=== PATIENT | female | born 1995 | race Caucasian/White ===

== ENCOUNTER 2018-12-09 12:07 | Emergency (ER) | payer OTHER, SELFPAY ==
[2018-12-09 12:07] VITALS: BP 131/94; PULSE 94; RESP 16; TEMP 36; O2SAT 96; BMI 48.0
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
--- NOTE | 2018-12-09 13:21 | ED.VISSUMM ---
- ER Visit Summary Date of Service: 12/09/18 Chief Complaint: Suicidal History of Present Illness: The patient is a 22 F with suicidal thoughts. She has had a depressed mood and she has been thinking about harming herself. She thought about killing herself in a motor vehicle accident or using her family's gun. She has not attempted to hurt her self. She denies any history of psychiatric illness or hospitalization. She denies any medical complaints. Physical Examination: Afebrile and vital signs unremarkable. Alert and oriented. No acute distress. Depressed mood and flat affect. Heart regular. Lungs clear. Abdomen soft. Skin appears normal. Test Results: CBC, CMP, test, tox, alcohol levels are pending. Emergency Department Course and Treatment: Patient had suicide precautions. I believe she will benefit from inpatient psychiatric care. Medical clearance was performed and unremarkable. Patient will be medically cleared for transfer and admission to a psychiatric facility. Treatment Plan: As above Disposition: Pending placement Impression: 1. Suicidal ideation This note was generated with [employer] dictation software. It may contain incorrect words, spelling, and punctuation that were not noted in review of the chart prior to signing ED Disposition - Plan for ED Patient: Referrals: [facility] Doctor,Out of [Primary Care Provider] -
[2018-12-09 13:26] LABS: Absolute Lymphocyte Count 1.47 X10^3/uL (0.83-4.51); Absolute Neutrophil Count 7.1 X10^3/uL (2.0-7.7); Basophil# 0.04 X10^3/uL; Basophil% 0.4 % (0-1); Eosinophil# 0.09 X10^3/uL; Hematocrit 38.5 % (37-47); Hemoglobin 11.7 g/dL (12.0-15.0); Lymphocyte # 1.47 X10^3/ul (4.0); Mean Corp Hgb Conc 30.4 g/dL (32-36); Mean Corpuscular Hgb 23.7 pg (27.0-32.0); Mean Corpuscular Volume 77.9 fL (81-99); Mean Platelet Vol. 12.4 fl (6.2-12.0); Monocyte# 0.44 X10^3/uL; Monocyte% 4.8 % (0-10); NRBC Flagged by Analyzer 0 % (0-5); Neutrophil # 7.12 X10^3/uL (2.7-7.7); Neutrophil % 77.6 % (47-70); Platelet Count 213 K/mm3 (150-450); RBC Distribution Width CV 15.5 % (11.6-14.6); RBC Distribution Width SD 43.5 fl (35.1-43.9); Red Blood Count 4.94 M/mm3 (4.2-5.4); White Blood Count 9.2 K/mm3 (4.4-11.0)
[2018-12-09 13:36] LABS: Amphetamine Urine VISTA NEGATIVE (<1000 ng/mL); Barbiturate Urine VISTA NEGATIVE (< 200 ng/mL); Benzodiazepine Urine VISTA NEGATIVE (< 200 ng/mL); Cocaine Urine VISTA NEGATIVE (< 300 ng/mL); Ecstacy Urine VISTA NEGATIVE (< 500 ng/mL); Methadone Urine VISTA NEGATIVE (< 300 ng/mL); PCP Urine VISTA NEGATIVE (< 25 ng/mL); THC Urine VISTA NEGATIVE (< 50 ng/mL); Vista UDS pH Range 6
[2018-12-09 13:37] LABS: Alcohol, Blood (Medical)-Serum < 3.0 mg/dL; Internal QC Validated? YES +Cl - CLEAR BKGD; Pregnancy, Serum, hCG Quali. NEGATIVE Negative
[2018-12-09 13:43] LABS: ALB/GLOB Ratio 0.8 RATIO (0.9-2.4); AST(SGOT) 23 U/L (15-37); Alanine Aminotransfer ALT/SGPT 37 U/L (13-56); Albumin, Serum 3.6 g/dL (3.2-5.0); Alkaline Phosphatase 125 U/L (45-117); Anion Gap 10 (5-15); BUN 9 mg/dL (7-18); BUN/Creat Ratio 12.6 RATIO (10-20); Calcium,Total 8.8 mg/dL (8.5-10.1); Chloride 107 mmol/L (98-107); Creatinine, Serum 0.71 mg/dL (0.55-1.02); EST Glomerular Filtration Rate 109 mL/min (>60); Est Glom Filt Rate - Afr Amer 132 mL/min (>60); Estimated Creatinine Clearance 112.78 ml/min; Globulin 4.4 g/dL (2.2-4.2); Glucose 82 mg/dL (74-106); Sodium Level 142 mmol/L (136-145)
--- NOTE | 2018-12-09 13:55 | CM.ED ---
Social Work Patient has been medically cleared per Dr. Hogan. Telephone call to [facility]. There are open beds and they do accept patient insurance. Referral faxed. Pending approval. Gibson DEJESUS, QUE
--- NOTE | 2018-12-09 14:53 | CM.ED ---
Social Work Telephone call from [facility], patient insurance is not in network with this facility due to patient having a narrow network. This secondary social studies teacher further investigated patient insurance coverage. Patient will need to transfer to a [facility]. Telephone call to the Access center with [facility] - [phone]. Referral placed. Pending approval. Gibson DEJESUS, QUE
[2018-12-09 16:04] VITALS: RESP 18
--- NOTE | 2018-12-09 17:26 | EKG12_ITS ---
Test Reason : SUICIDAL Blood Pressure : / mmHG Vent. Rate : 085 BPM Atrial Rate : 085 BPM P-R Int : 152 ms QRS Dur : 096 ms QT Int : 366 ms P-R-T Axes : 015 001 008 degrees QTc Int : 435 ms Normal sinus rhythm with sinus arrhythmia Nonspecific T wave abnormality Abnormal ECG Confirmed by JENNIE RICHARDSON, SENTHIL ([id number]), senior technical editor CHELO INGRAM ([id number]) on 12/13/2018 3:32:13 PM Referred By: DC Confirmed By:SENTHIL SCHNEIDER MD
--- NOTE | 2018-12-09 17:27 | ED.RN ---
pt up to ambulate to bathroom. pt remains appropriate and cooperative. pt ate partial lunch . remains amendable to staff suggestions
[2018-12-09 18:07] LABS: CPK Total, Creatine Kinase 92 U/L (26-192)
[2018-12-09 18:38] VITALS: BP 130/86; PULSE 84; RESP 18; O2SAT 98
--- NOTE | 2018-12-09 19:30 | ED.RN ---
PT MOTHER CALLED REQUESTING INFORMATION.. MOTHER AWARE OF PROCEDURE TO PLACE PT.MOTHER REQUESTING TO TALK REGARDING POSSIBILITIES OF DIFFIRENT PLACEMENTS. GUIDO FROM AWARE AND WILL TALK TO PT. IF PT ALLOWS GUIDO TO TALK WITH MOTHER GUIDO WILL CONTACT. PHONE NUMBER FOR MOTHER GIVEN TO GUIDO
[2018-12-09 20:10] VITALS: RESP 16
--- NOTE | 2018-12-09 20:38 | CM.ED ---
Social Work Telephone call from [facility], patient has been accepted. Admitting doctor: Dr. Dasilva. N:N: [phone]. Room: 386. Notified nursing staff and patient. Dr. Carney updated as well. Lee slip faxed. All agreeable to plan. Gibson DEJESUS, QUE
[2018-12-09 20:51] VITALS: BP 140/75; PULSE 81; RESP 16; O2SAT 96
--- NOTE | 2018-12-09 20:51 | CM.ED ---
Social Work Patient was agreeable to this social secretary speaking with patient mother, Emelia. This social secretary updating Emelia on current plan. Emelia thanking this social secretary for information. Gibson DEJESUS, QUE
== END 2018-12-09 21:25 ==
PROVIDERS: Emergency Medicine; Emergency Provider Emergency Medicine
DX: R45.851 Suicidal ideations (principal); E28.2 Polycystic ovarian syndrome
CPT/HCPCS: 80053; 80307; 80320; 82550; 84703; 85025; 93005; 99284; G0480